=== PATIENT | female | born 1950 | race Caucasian/White ===

== ENCOUNTER 2017-09-18 08:15 | Emergency (ER) | payer MEDICARE, OTHER ==
[2017-09-18 09:07] LABS: CHLORIDE,CL 103 mEq/L (98-106); SODIUM,NA 139 mEq/L (136-145)
[2017-09-18] MEDS: Lactated Ringers 1,000 ML IV SCH (09:08)
[2017-09-18] MEDS: Ketorolac 30 MG/ML SDV IVPUSH ONE (09:39)
[2017-09-18 10:05] VITALS: BP 157/92
--- NOTE | 2017-09-18 12:38 | EDM.PDOC ---
ED HPI GENERAL MEDICAL PROBLEM - General Chief Complaint: General Stated Complaint: cough,body aches Time Seen by Provider: 09/18/17 08:33 Source of Information: Reports: Patient History Limitations: Reports: No Limitations - History of Present Illness INITIAL COMMENTS - FREE TEXT/NARRATIVE: Patient presents today with complaints of a syncopal episode in her bathroom at home. Has been ill over the last few days with myalgias, fevers and upper respiratory concerns. Was taking a hot shower today and when got out, started to feel lightheaded. She states she sat down on the toilet and started to get very hot and sweaty. states he heard her fall and found her lying on the bathroom floor. Was unresponsive for a few seconds. She denies feeling lightheaded now, more concerns with myalgias and cough. Does feel nauseated, has had dry heaves, no vomiting. She has not been eating or drinking well. Only ate an orange yesterday but has been trying to sit on water. Onset: Today, Sudden Duration: Minutes: Location: Reports: Generalized Associated Symptoms: Reports: Cough, Diaphoresis, Fever/Chills, Loss of Appetite , Nausea/Vomiting, Shortness of Breath, Syncope, Weakness Generalized Pain Score (Numeric/FACES): 9 - Related Data Allergies Allergy/AdvReac Type Severity Reaction Status Date / Time aspirin Allergy Shortness Verified 09/18/17 08:20 of Breath egg Allergy Hives Verified 09/18/17 08:20 nitrofurantoin Allergy Hives Verified 09/18/17 08:20 [From Macrodantin] tomato Allergy Hives Verified 09/18/17 08:20 wheat Allergy Hives Verified 09/18/17 08:20 levofloxacin AdvReac Indigestion Verified 09/18/17 08:22 Home Meds: Home Meds Budesonide/Formoterol [Symbicort 160-4.5 MCG] 1 inh INH BID 09/15/16 [History] Fluticasone Propionate [Flovent Diskus] 50 mcg IH DAILY 09/18/17 [History] Loratadine/Pseudoephedrine [Alavert D-12 Allergy-Sinus] 1 tab PO DAILY 09/18/17 [History] Past Medical History HEENT History: Reports: Sinusitis Respiratory History: Reports: Asthma Musculoskeletal History: Reports: Fracture - Past Surgical History HEENT Surgical History: Reports: Naso-Sinus Surgery Respiratory Surgical History: Reports: None Musculoskeletal Surgical History: Reports: Arthroscopic Knee Social & Family History - Family History Family Medical History: Noncontributory - Tobacco Use Smoking Status *Q: Never Smoker Second Hand Smoke Exposure: No - Caffeine Use Caffeine Use: Reports: Coffee - Recreational Drug Use Recreational Drug Use: No ED ROS GENERAL - Review of Systems Review Of Systems: See Below Constitutional: Reports: Fever, Chills, Malaise, Weakness, Fatigue, Decreased Appetite HEENT: Reports: Rhinitis, Sinus Problem. Denies: Ear Pain, Throat Pain Respiratory: Reports: Cough. Denies: Shortness of Breath, Sputum Cardiovascular: Denies: Chest Pain, Edema, Lightheadedness Endocrine: Reports: Fatigue GI/Abdominal: Reports: Nausea. Denies: Abdominal Pain, Constipation, Diarrhea, Vomiting : Reports: No Symptoms Musculoskeletal: Reports: No Symptoms Skin: Reports: No Symptoms Neurological: Reports: Syncope, Weakness ED EXAM, GENERAL - Physical Exam Exam: See Below Exam Limited By: No Limitations General Appearance: Alert, WD/WN, No Apparent Distress Ears: Normal External Exam, Normal TMs Nose: Normal Inspection, Normal Mucosa, Nasal Drainage Throat/Mouth: Normal Inspection, Normal Oropharynx Head: Normocephalic Neck: Normal Inspection, Supple, Non-Tender Respiratory/Chest: No Respiratory Distress, Lungs Clear, Normal Breath Sounds Cardiovascular: Normal Peripheral Pulses, Regular Rate, Rhythm GI/Abdominal: Normal Bowel Sounds, Soft, Non-Tender Extremities: Normal Inspection, Normal Capillary Refill Neurological: Alert, Oriented, CN II-XII Intact, Normal Cognition, Normal Gait, No Motor/Sensory Deficits Skin Exam: Warm, Dry Course - Vital Signs Last Recorded V/S: Last Vital Signs Temp 98.9 F 09/18/17 09:05 Pulse 78 09/18/17 09:05 Resp 16 09/18/17 09:05 BP 157/92 H 09/18/17 09:05 Pulse Ox 92 L 09/18/17 09:05 - Orders/Labs/Meds Labs: Laboratory Tests 09/18/17 09/18/17 09/18/17 Range/Units 08:40 08:40 08:40 WBC 4.8 L (5.0-10.0) 10^3/uL RBC 4.75 (4.00-5.50) 10^6/uL Hgb 14.4 (12.0-16.0) g/dL Hct 44.0 (37.0-47.0) % MCV 92.6 (82.0-94.0) fL MCH 30.3 (27.0-32.0) pg MCHC 32.7 L (33.0-38.0) g/dL RDW Coeff of Tyrel 14.3 (11.0-15.0) % Plt Count 198 (150-400) 10^3/uL Neut % (Auto) 66.8 (35-85) % Lymph % (Auto) 18.5 (10-55) % [place] % (Auto) 13.0 (0-16) % Eos % (Auto) 1.1 (0-5) % Baso % (Auto) 0.6 (0-3) % Neut # (Auto) 3.18 (1.80-7.00) 10^3/uL Lymph # (Auto) 0.88 L (1.00-4.80) 10^3/uL [place] # (Auto) 0.62 (0.00-0.80) 10^3/uL Eos # (Auto) 0.05 (0.00-0.45) 10^3/uL Baso # (Auto) 0.03 10^3/uL D-Dimer, Quantitative 0.58 H (0.00-0.50) Sodium (136-145) mEq/L Potassium (3.5-5.0) mEq/L Chloride (98-106) mEq/L Carbon Dioxide (21-32) mmol/L BUN (7-18) mg/dL Creatinine (0.6-1.0) mg/dL Est Cr Clr Drug Dosing mL/min Estimated GFR (MDRD) (>=60) mL/min Glucose (75-99) mg/dL Calcium (8.4-10.1) mg/dL Total Bilirubin (0.0-1.0) mg/dL AST (15-37) U/L ALT (12-78) U/L Alkaline Phosphatase (46-116) U/L Lactate Dehydrogenase (100-190) U/L Creatine Kinase (21-215) U/L Troponin I (0.00-0.06) ng/mL C-Reactive Protein (0.2-0.8) mg/dL Total Protein (6.4-8.2) g/dL Albumin (3.4-5.0) g/dL Urine Color Yellow (YELLOW) Urine Appearance Clear (CLEAR) Urine pH 6.0 (4.5-8.0) Ur Specific [place] 1.025 H (1.003-1.020) Urine Protein Trace H (NEGATIVE) mg/dL Urine Glucose (UA) Negative (NEGATIVE) mg/dL Urine Ketones Trace H (NEGATIVE) mg/dL Urine Occult Blood Negative (NEGATIVE) Urine Nitrite Negative (NEGATIVE) Urine Bilirubin Negative (NEGATIVE) Urine Urobilinogen 0.2 (0.2-1.0) EU/dL Ur Leukocyte Esterase Negative (NEGATIVE) Urine RBC Not seen (0-5) /HPF Urine WBC Not seen (0-5) /HPF Ur Epithelial Cells Few H (NOT SEEN) /HPF Amorphous Sediment Few H (NOT SEEN) /HPF Urine Mucus Moderate H (NOT SEEN) /HPF 09/18/17 Range/Units 08:40 WBC (5.0-10.0) 10^3/uL RBC (4.00-5.50) 10^6/uL Hgb (12.0-16.0) g/dL Hct (37.0-47.0) % MCV (82.0-94.0) fL MCH (27.0-32.0) pg MCHC (33.0-38.0) g/dL RDW Coeff of Tyrel (11.0-15.0) % Plt Count (150-400) 10^3/uL Neut % (Auto) (35-85) % Lymph % (Auto) (10-55) % [place] % (Auto) (0-16) % Eos % (Auto) (0-5) % Baso % (Auto) (0-3) % Neut # (Auto) (1.80-7.00) 10^3/uL Lymph # (Auto) (1.00-4.80) 10^3/uL [place] # (Auto) (0.00-0.80) 10^3/uL Eos # (Auto) (0.00-0.45) 10^3/uL Baso # (Auto) 10^3/uL D-Dimer, Quantitative (0.00-0.50) Sodium 139 (136-145) mEq/L Potassium 4.5 (3.5-5.0) mEq/L Chloride 103 (98-106) mEq/L Carbon Dioxide 28 (21-32) mmol/L BUN 16 (7-18) mg/dL Creatinine 1.2 H (0.6-1.0) mg/dL Est Cr Clr Drug Dosing 39.56 mL/min Estimated GFR (MDRD) 45 L (>=60) mL/min Glucose 116 H D (75-99) mg/dL Calcium 8.6 (8.4-10.1) mg/dL Total Bilirubin 0.3 (0.0-1.0) mg/dL AST 28 (15-37) U/L ALT 39 (12-78) U/L Alkaline Phosphatase 61 (46-116) U/L Lactate Dehydrogenase 215 H (100-190) U/L Creatine Kinase 67 (21-215) U/L Troponin I < 0.017 (0.00-0.06) ng/mL C-Reactive Protein 1.1 H (0.2-0.8) mg/dL Total Protein 7.1 (6.4-8.2) g/dL Albumin 3.5 (3.4-5.0) g/dL Urine Color (YELLOW) Urine Appearance (CLEAR) Urine pH (4.5-8.0) Ur Specific [place] (1.003-1.020) Urine Protein (NEGATIVE) mg/dL Urine Glucose (UA) (NEGATIVE) mg/dL Urine Ketones (NEGATIVE) mg/dL Urine Occult Blood (NEGATIVE) Urine Nitrite (NEGATIVE) Urine Bilirubin (NEGATIVE) Urine Urobilinogen (0.2-1.0) EU/dL Ur Leukocyte Esterase (NEGATIVE) Urine RBC (0-5) /HPF Urine WBC (0-5) /HPF Ur Epithelial Cells (NOT SEEN) /HPF Amorphous Sediment (NOT SEEN) /HPF Urine Mucus (NOT SEEN) /HPF Meds: Medications Discontinued Medications Generic Name Dose Route Start Last Admin Trade Name Freq PRN Reason Stop Dose Admin Lactated Ringer's 1,000 mls @ 250 mls/hr 09/18/17 08:45 09/18/17 09:08 Ringers, Lactated IV 250 mls/hr ASDIRECTED CHIO Administration Ketorolac Tromethamine 30 mg 09/18/17 09:26 09/18/17 09:39 Toradol IVPUSH 09/18/17 09:27 30 mg ONETIME ONE Administration - Re-Assessments/Exams Free Text/Narrative Re-Assessment/Exam: 09/19/17 0900 Labs all essentially normal. Will rehydrate with IV fluids, Toradol for discomfort and monitor. 1130-Feeling much better. Declines hospitalization. Will have patient continue to push fluids. Start Tamiflu as does have indications of a viral infection and unable to test for it due to shortage of kits. Departure - Departure Time of Disposition: 12:30 Disposition: Home, Self-Care 01 Condition: Fair Clinical Impression: Acute viral syndrome - Discharge Information Referrals: Stephanie Yoo PA [Emergency Provider] - Forms: ED Department Discharge Additional Instructions: 1. Push fluids 2. Tylenol or ibuprofen for fever or discomfort 3. Rest 4. Follow up for any ongoing concern.
== END 2017-09-18 13:15 | disposition home or self-care (01) ==
LOC: CC.ED 08:15
DX: B34.9 Viral infection, unspecified (principal); Z88.8 Allergy status to other drugs, medicaments and biological substances; Z91.012 Allergy to eggs; Z91.018 Allergy to other foods; Z79.899 Other long term (current) drug therapy; J45.909 Unspecified asthma, uncomplicated; Z88.6 Allergy status to analgesic agent
CPT/HCPCS: 36415; 71046; 80053; 81001; 82550; 83615; 84484; 85025; 85379; 86140; 93005; 96365; 96366; 96375; 99284; J1885; J7120

== ENCOUNTER 2018-06-22 18:40 | Emergency (ER) | payer MEDICARE, OTHER ==
[2018-06-22] MEDS ORDERED: Silver Nitrate Applicator Each TOP ONE ×2 (18:41→19:10)
[2018-06-22] MEDS ORDERED: Gelatin Sponge,Absorbable 12-7 mm Sponge TOP ONE (18:41)
[2018-06-22] MEDS ORDERED: Oxymetazoline 0.05% Nasal Spray 15 ML Bottle NAS ONE ×2 (18:41→19:00)
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
[2018-06-22 19:23] VITALS: BP 169/96
== END 2018-06-22 20:30 | disposition critical access hospital (66) ==
LOC: CC.ED 18:40
DX: R04.0 Epistaxis (principal); Z91.012 Allergy to eggs; Z91.018 Allergy to other foods; Z88.1 Allergy status to other antibiotic agents
CPT/HCPCS: 99284; A9270; 30901; 99283